=== PATIENT | male | born 2000 | race Caucasian/White ===

== ENCOUNTER 2023-06-25 15:39 | Emergency (ER) | payer OTHER ==
[~2023-06-25] VITALS: Ht 172.7 cm; Wt 79.8 kg
[~2023-06-25 15:39] MED LIST: ACET-868 PO; IBUP-1955 PO
[2023-06-25 16:00] VITALS: BP 122/73; TEMP 98.3
[2023-06-25 18:23] VITALS: O2SAT 99
== END 2023-06-25 18:24 | disposition home or self-care (01) ==
LOC: ER 15:39
DX: M25.572 Pain in left ankle and joints of left foot (principal); F17.200 Nicotine dependence, unspecified, uncomplicated; V00.311A Fall from snowboard, initial encounter; Y93.23 Activity, snow (alpine) (downhill) skiing, snowboarding, sledding, tobogganing and snow tubing; Y92.89 Other specified places as the place of occurrence of the external cause; Y99.8 Other external cause status
CPT/HCPCS: 73610-TC